=== PATIENT | female | born 1955 | race Caucasian/White ===

== ENCOUNTER → 2017-10-17 | Outpatient (CLI) | payer OTHER ==
--- NOTE | 2017-10-18 12:21 | US ---
EXAM DESCRIPTION: Breast,Bilateral: Ultrasound CLINICAL HISTORY: 62 yearsFemaleBIL BREAST LUMPS COMPARISON: Digital diagnostic 3-D tomosynthesis bilateral mammography on this visit. TECHNIQUE: Transcutaneous scanning of the bilateral breasts utilizing two-dimensional and Doppler modes. Scanning performed by the sat instructor and Dr. Baldwin. FINDINGS: Scanning of the lateral lower outer right breast where patient says left is palpable. This is not palpated by the sat instructor or radiologist. Heterogeneous fibroglandular and fibrofatty tissues. No distinct solid mass or cyst. No parenchymal edema or large calcifications. No overlying skin changes. No abnormal Doppler vascularity. Scanning at the lateral lower outer area of the left breast. Lump is palpable at this location by sat instructor and radiologist. An oval-shaped heterogeneous echogenic mass with smooth hypoechoic borders is visualized. Dimensions are 4.2 x 7.1 x 1.6 cm. Nonvascular. Consistent with a lipoma. No discrete cyst or parenchymal edema. No large calcifications or abnormal Doppler vascularity. No overlying skin changes. IMPRESSION: 1. Bi-Rads Category 2: Benign. 2. Please refer to bilateral diagnostic 3-D tomosynthesis mammography and report on this visit. The FINDINGS and the FOLLOW-UP plan were reviewed in person with the patient after the examination. Written communication explaining the IMPRESSION and FOLLOW-UP will be mailed to the patient and referring care provider. Electronically signed by: Lars Baldwin MD 10/18/2017 12:19 PM CDT
--- NOTE | 2017-10-18 12:22 | MAM ---
EXAM DESCRIPTION: 3D Diagnostic, Bilateral: Digital Mammography CLINICAL HISTORY: 62 yearsFemaleLUMP . Probable lump on the lateral left breast or chest wall. Also lower outer right breast patient says palpable lump. Sister with breast cancer. Postmenopausal. No HRT. COMPARISON: Prior breast ultrasound 10/09/2007.. Targeted breast ultrasound following this examination. No prior reports. TECHNIQUE: Bilateral CC LM MLO projection full-field images, 3-D tomosynthesis digital mammographic technique. Also bilateral synthesized CC MLO LM full-field images. CAD not utilized. FINDINGS: The breast parenchymal density pattern is: Scattered areas of fibroglandular density. No skin thickening or nipple retraction retroareolar nodule with radiolucent center interpreted to be a lymph node. No mammographic abnormality in the region adjacent to skin marker on the lateral left breast and chest wall. Left axillary lymph nodes. No mammographic abnormality on the lateral outer right breast where patient indicates palpable mass. No focal, stellate mass or density, focal asymmetry , and no suspicious microcalcifications bilaterally. Ultrasound: Scanning of the lateral lower outer right breast where patient says left is palpable. This is not palpated by the manager oracle or radiologist. Heterogeneous fibroglandular and fibrofatty tissues. No distinct solid mass or cyst. No parenchymal edema or large calcifications. No overlying skin changes. No abnormal Doppler vascularity. Scanning at the lateral lower outer area of the left breast. Lump is palpable at this location by manager oracle and radiologist. An oval-shaped heterogeneous echogenic mass with smooth hypoechoic borders is visualized. Dimensions are 4.2 x 7.1 x 1.6 cm. Nonvascular. Consistent with a lipoma. No discrete cyst or parenchymal edema. No large calcifications or abnormal Doppler vascularity. No overlying skin changes. IMPRESSION: BI-RADS CATEGORY: 2 - BENIGN FINDINGS. FOLLOW UP: Routine digital bilateral screening, one year interval from October 2017. The FINDINGS and the FOLLOW-UP plan were reviewed in person with the patient after the examination. Written communication explaining the IMPRESSION and FOLLOW-UP will be mailed to the patient and referring care provider. According to the [employer], yearly mammograms are recommended starting at age 40 and continuing as long as a woman is in good health. Any breast change noted on a breast self-exam should be reported promptly to the patient's healthcare provider. Breast MRI is recommended for women with an approximately 20-25% or greater lifetime risk of breast cancer, including women with a strong family history of breast or ovarian cancer and women who have been treated for Hodgkin's disease. A negative mammographic report should not delay tissue diagnosis in patients with significant clinical history or physical findings. Extremely dense breast tissue limits the sensitivity of digital mammography. Electronically signed by: Lars Baldwin MD 10/18/2017 12:21 PM CDT
== END ==
LOC: MAMMO 11:30
PROVIDERS: ATTEND Emergency Medicine
DX: N63.20 Unspecified lump in the left breast, unspecified quadrant (principal)

== ENCOUNTER → 2019-04-29 | Outpatient (CLI) | payer OTHER ==
--- NOTE | 2019-04-30 16:06 | MAM ---
EXAM DESCRIPTION: 3D Screening BILATERAL : Digital Mammography. CLINICAL HISTORY: 63 years Female ANNUAL SCREENING . No complaints. No personal history of breast cancer. Female sibling with breast cancer at age 50. Menarche age 11. No childbirth. Postmenopausal less than 2 years. No HRT. Lifetime risk of developing breast cancer (Tyrer-Cuzick model)(%): 14.8. COMPARISON: Bilateral diagnostic digital breast tomosynthesis and bilateral breast ultrasound second of October 2017.. TECHNIQUE: Bilateral CC and MLO projection full-field images, digital tomosynthesis mammographic technique. Bilateral digital 2-D full-field MLO images. CAD not available for tomosynthesis or 2-D images. FINDINGS: The breast parenchymal density pattern is: Scattered areas of fibroglandular density. No skin thickening or nipple retraction. Bilateral axillary lymph nodes. Bilateral solitary microcalcifications. Bilateral regions of focal asymmetry are stable. Left retroareolar mass is no longer present most likely an involuted cyst. No new focal, stellate mass or density, focal asymmetry , and no suspicious microcalcifications bilaterally. Stable mammograms compared to prior study. Taking into account, differences in mammographic technique. IMPRESSION: Benign exam. BIRAD CATEGORY: 2 BENIGN FINDINGS. RECOMMENDATIONS: FOLLOW UP: Routine digital bilateral mammographic screening, one year interval from April 2019. Written communication explaining the IMPRESSION and follow-up, will be mailed to the patient and referring health care provider. According to the [employer], yearly mammograms are recommended starting at age 40 and continuing as long as a woman is in good health. Any breast change noted on a breast self-exam should be reported promptly to the patient's healthcare provider. Breast MRI is recommended for women with an approximately 20-25% or greater lifetime risk of breast cancer, including women with a strong family history of breast or ovarian cancer and women who have been treated for Hodgkin's disease. A negative mammographic report should not delay tissue diagnosis in patients with significant clinical history or physical findings. Extremely dense breast tissue limits the sensitivity of digital mammography. Electronically signed by: Lars Baldwin MD 04/30/2019 4:04 PM [employer]
== END ==
LOC: EDSTATUS 13:00 → GRBHC 13:24 → MAMMO 13:24
PROVIDERS: ATTEND Family Medicine
DX: Z12.31 Encounter for screening mammogram for malignant neoplasm of breast (principal)

== ENCOUNTER → 2019-12-11 | Outpatient (CLI) | payer BC ==
--- NOTE | 2019-12-11 15:31 | US ---
EXAM DESCRIPTION: Pelvis Transvaginal: Ultrasound. CLINICAL HISTORY: 64 years Female POSTMENOPAUSAL BLEEDING COMPARISON: None. TECHNIQUE: Endovaginal scanning; Vaughn-scale and Doppler modes. FINDINGS: Uterus 4.6 x 3.3 x 2.4 cm 18.6 mL.. Endometrial thickness 3.4 mm. No fluid. Myometrium heterogeneous. Hyperechoic mass in the fundus measuring 9.6 x 6.7 mm.. Uterus not retroflexed. Cervix 3.0 mm anechoic cyst. Small calcifications. Cul-de-sac no fluid. Right ovary 1.6 x 1.3 x 1.2 cm 1.3 mL.. Normal color Doppler vascularity. No cysts. No adnexal mass or free fluid. Left ovary 1.6 x 1.5 x 1.5 cm 1.8 mL.. Normal color Doppler vascularity. No cysts. No adnexal mass or free fluid. IMPRESSION: 1. Small uterus and normal position. No endometrial thickening or fluid. Hyperechoic fibroid 9.6 mm in the fundus. Nabothian cyst and endocervical calcifications. No fluid in the cul-de-sac. 2. Small bilateral ovaries with normal vascularity and no fluid or mass. Electronically signed by: Lasr Baldwin MD 12/11/2019 3:29 PM CDT
== END ==
LOC: US 08:16
PROVIDERS: ATTEND Emergency Medicine
DX: N95.0 Postmenopausal bleeding (principal); N85.8 Other specified noninflammatory disorders of uterus; D25.9 Leiomyoma of uterus, unspecified